=== PATIENT | female | born 1970 | race Hispanic/Latino ===

== ENCOUNTER 2021-04-17 10:29 | Emergency (ER) | payer OTHER ==
[~2021-04-17] VITALS: Ht 154.9 cm; Wt 89.4 kg
[2021-04-17] MEDS ORDERED: DEXAMETHASONE SOD PHOSPHATE 4 MG/ML 1ML VIAL IM ONE (13:00)
[2021-04-17] MEDS ORDERED: GUAIFENESIN-CODEINE 5 ML SYRUP PO ONE (13:00)
[2021-04-17] MEDS ORDERED: DOXYCYCLINE HYCLATE 100 MG TABLET PO SCH (13:00)
[2021-04-17] MEDS ORDERED: PRED20TA3 PO (13:11)
[2021-04-17] MEDS ORDERED: GUAIFACSF PO (13:11)
[2021-04-17] MEDS ORDERED: DOXY-336 PO (13:11)
[2021-04-17] MEDS ORDERED: AUD IH (13:11)
[2021-04-17 13:51] VITALS: BP 141/86
== END 2021-04-17 13:54 | disposition home or self-care (01) ==
LOC: EDH 10:29
DX: J45.909 Unspecified asthma, uncomplicated (principal); Z20.822 Contact with and (suspected) exposure to COVID-19; I10 Essential (primary) hypertension; E11.9 Type 2 diabetes mellitus without complications; Z79.52 Long term (current) use of systemic steroids; Z88.5 Allergy status to narcotic agent
CPT/HCPCS: 87635; 87804 ×2; 96372; 99283; C9803; J1100